=== PATIENT | male | born 2000 | race Two or more races ===

== ENCOUNTER 2023-06-21 21:09 | Emergency (ER) | payer BC ==
[~2023-06-21] VITALS: Ht 172.7 cm; Wt 90.7 kg
[2023-06-21 21:40] VITALS: BP 164/102; TEMP 98
[2023-06-21] MEDS ORDERED: LORAZEPAM 0.5 MG TABLET ONE (21:46)
[2023-06-21 21:56] VITALS: O2SAT 98
[2023-06-21] MEDS ORDERED: LORAZEPAM 1 MG TABLET PO ONE ×2 (22:00)
== END 2023-06-21 21:50 | disposition home or self-care (01) ==
LOC: ER 21:19
DX: F41.9 Anxiety disorder, unspecified (principal)